=== PATIENT | male | born 1980 | race Caucasian/White ===

== ENCOUNTER 2019-05-24 14:48 | Emergency (ER) | payer OTHER ==
[~2019-05-24] VITALS: Ht 177.8 cm; Wt 80.9 kg
[~2019-05-24 14:48] MED LIST: NO HOME MEDS
[2019-05-24 15:05] VITALS: BP 158/113
== END 2019-05-24 16:26 | disposition home or self-care (01) ==
LOC: ER 14:48
DX: Z77.21 Contact with and (suspected) exposure to potentially hazardous body fluids (principal); F41.9 Anxiety disorder, unspecified
CPT/HCPCS: 99281